=== PATIENT | female | born 1995 | race Caucasian/White ===

== ENCOUNTER 2016-12-23 00:41 | Emergency (ER) | payer OTHER ==
[~2016-12-23] VITALS: Ht 160 cm; Wt 100.3 kg
[2016-12-23 00:44] VITALS: Ht 160 cm; Wt 100.3 kg
[2016-12-23] MEDS ORDERED: ONDANSETRON 4 MG INJ IV STA (02:14)
[2016-12-23] MEDS ORDERED: LIDOCAINE/MYLANTA 40 ML BTL PO STA (02:14)
[2016-12-23 02:29] LABS: URINE BLOOD (Dip) POC 3+ (NEGATIVE)
[2016-12-23 02:47] LABS: BASOPHIL # 0.1 10^3/ul (0.0-0.1); BASOPHILS % 0.4 % (0.0-2.0); EOSINOPHILS % 0.3 % (0.0-7.0); HEMATOCRIT 40.6 % (37.0-47.0); HEMOGLOBIN 12.8 g/dl (12.0-16.0); LYMPHOCYTES # 1.9 10^3/ul (0.8-2.9); LYMPHOCYTES % 14.8 % (15.0-51.0); MEAN CORPUSCULAR HEMOGLOBIN 23.7 pg (29.0-33.0); MEAN CORPUSCULAR HGB CONC 31.5 g/dl (32.0-37.0); MEAN PLATELET VOLUME 10.9 fl (7.4-10.4); MONOCYTE # 0.8 10^3/ul (0.3-0.9); MONOCYTES % 5.9 % (0.0-11.0); NEUTROPHIL # 10.1 10^3/ul (1.6-7.5); NEUTROPHILS % 78.2 % (39.0-77.0); PLATELET COUNT 255 10^3/UL (140-415); RED BLOOD COUNT 5.41 10^6/ul (4.20-5.40); RED CELL DISTRIBUTION WIDTH 15.7 % (11.5-14.5); WHITE BLOOD COUNT 12.9 10^3/ul (4.8-10.8)
[2016-12-23 02:54] LABS: ALBUMIN 4.3 g/dl (3.3-4.9); BILIRUBIN,INDIRECT 0.2 mg/dl (0-1.1); BILIRUBIN,TOTAL 0.2 mg/dl (0.2-1.3); CALCIUM 9.8 mg/dl (8.4-10.2); CREATININE 0.68 mg/dl (0.44-1.00); POTASSIUM 3.6 mmol/L (3.5-5.1); TOTAL PROTEIN 7.9 g/dl (6.1-8.1)
[2016-12-23 02:55] LABS: ALBUMIN/GLOBULIN RATIO 1.19
[2016-12-23 03:17] LABS: ADD UMIC YES; UR ASCORBIC ACID NEGATIVE (NEGATIVE); UR BACTERIA FEW /HPF (NONE SEEN); UR BILIRUBIN (Dip) NEGATIVE (NEGATIVE); UR BLOOD (Dip) 3+ mg/dL (NEGATIVE); UR CLARITY CLOUDY (CLEAR); UR COLOR YELLOW (YELLOW); UR GLUCOSE (Dip) NEGATIVE (NEGATIVE); UR KETONES (Dip) NEGATIVE (NEGATIVE); UR LEUKOCYTE ESTERASE (Dip) 2+ Leu/ul (NEGATIVE); UR MUCUS MODERATE /HPF (NONE SEEN); UR NITRITE (Dip) NEGATIVE (NEGATIVE); UR RBC 49 /HPF (0-5); UR SPECIFIC GRAVITY (Dip) 1.016 (1.003-1.030); UR SQUAMOUS EPITHELIAL CELL MANY /HPF (FEW); UR TOTAL PROTEIN (Dip) 1+ mg/dl (NEGATIVE); UR UROBILINOGEN (Dip) NEGATIVE (NEGATIVE)
--- NOTE | 2016-12-23 03:55 | RADRPT ---
PROCEDURE: ULTRASOUND LIMITED ABDOMEN CLINICAL INDICATION: 21-year-old female with abdominal pain. TECHNIQUE: Multiple sonographic of the right upper quadrant of the abdomen were obtained. The imag es were reviewed on a PACS workstation. COMPARISON: None. FINDINGS: The pancreas is not well visualized secondary to the patient's body habitus and overlying bowel gas. The liver displays normal echogenicity. The liver measures 14.9 cm in length. No evidence of intrah epatic biliary ductal dilatation is seen. The portal and hepatic veins are unremarkable. The gallbladder demonstrates no wall thickening, sludge, nor stones. No pericholecystic fluid is see n. The common bile duct measures 3.0 mm and is not dilated. The right kidney displays normal echogenicity. The right kidney measures 9.4 cm in maximal length. N o caliectasis or hydronephrosis is seen. No free fluid is seen. IMPRESSION: Unremarkable right upper quadrant abdominal ultrasound. .Myron Tran MD, Date Time Electronically viewed and signed by .Myron Tran MD, on 12/23/2016 03:55 .M/
[2016-12-23] MEDS ORDERED: NAPR-688 PO (06:01)
[2016-12-23] MEDS ORDERED: CIPR500T4 PO ×2 (06:01→06:05)
[2016-12-23] MEDS ORDERED: ONDA4TAB11 PO (06:01)
[2016-12-23 06:03] VITALS: BP 115/65; PULSE 78; RESP 16; TEMP 98.4
[2016-12-23] MEDS ORDERED: NITR-58 PO (06:05)
[2016-12-23] MEDS ORDERED: HYDR-906 PO (06:07)
--- NOTE | 2016-12-23 06:14 | ERD ---
ER Documentation Chief Complaint Chief Complaint upper abdominal pain x 1 day HPI This 29-year-old female came in for upper abdominal pain rating to her back for 1 day. Says some lower abdominal pain. The pain is in her lower back as well as described as aching pain. She has had some chills but no fevers. She is also generalized malaise. ROS All systems reviewed and are negative except as per history of present illness. Medications Home Meds Active Scripts Hydrocodone/Acetaminophen ([place] 5-325 Tablet) 1 Each Tablet, 1 EACH PO Q6, #10 TAB Prov:CHRISTY COSTA DO 12/23/16 Nitrofurantoin Monohyd Macrocr* (Macrobid*) 100 Mg Capsr, 100 MG PO BID, #10 CAP Prov:CHRISTY COSTA DO 12/23/16 Ciprofloxacin Hcl* (Ciprofloxacin Hcl*) 500 Mg Tablet, 500 MG PO BID for 10 Days , TAB Prov:CHRISTY COSTA DO 12/23/16 Ondansetron (Zofran Odt) 4 Mg Tab.rapdis, 4 MG PO Q6, #20 Prov:CHRISTY COSTA DO 12/23/16 Naproxen* (Naproxen*) 500 Mg Tablet, 500 MG PO BID Y for PAIN, #20 TAB Prov:CHRISTY COSTA DO 12/23/16 Allergies Allergies: Coded Allergies: No Known Allergy (Unverified , 12/23/16) PMhx/Soc Medical and Surgical Hx: pt denies Medical Hx, pt denies Surgical Hx History of Surgery: No Anesthesia Reaction: No Hx Neurological Disorder: No Hx Respiratory Disorders: No Hx Cardiac Disorders: No Hx Psychiatric Problems: No Hx Miscellaneous Medical Probl: No Hx Alcohol Use: No Hx Substance Use: No Hx Tobacco Use: No Smoking Status: Never smoker Physical Exam Vitals Vital Signs Date Time Temp Pulse Resp B/P Pulse Ox O2 Delivery O2 Flow Rate FiO2 12/23/16 06:03 98.4 78 16 115/65 100 Room Air 12/23/16 01:26 80 16 110/53 99 Room Air 12/23/16 00:44 98.1 54 20 98/50 100 Physical Exam Const: [] Mild distress Head: Atraumatic Eyes: Normal Conjunctiva ENT: Normal External Ears, Nose and Mouth. Neck: Full range of motion..~ No meningismus. Resp: Clear to auscultation bilaterally Cardio: Regular rate and rhythm, no murmurs Abd: Soft, mild suprapubic pain without guarding rebound, non distended. Normal bowel sounds Skin: No petechiae or rashes Back: No midline or flank tenderness Ext: No cyanosis, or edema Neur: Awake and alert oriented 3, no focal deficits Psych: Normal Mood and Affect Result Diagram: 12/23/1622612/23/16226 Results 24 hrs Laboratory Tests Test 12/23/16 02:26 12/23/16 02:27 Urine Color YELLOW Urine Clarity CLOUDY Urine pH 7.0 Urine Specific [place] 1.016 Urine Ketones NEGATIVEmg/dL Urine Nitrite NEGATIVEmg/dL Urine Bilirubin NEGATIVEmg/dL Urine Urobilinogen NEGATIVEmg/dL Urine Leukocyte Esterase 2+Juan Miguel/ul Urine Microscopic RBC 49/HPF Urine Microscopic WBC 35/HPF Urine Squamous Epithelial Cells MANY/HPF Urine Bacteria FEW/HPF Urine Mucus MODERATE/HPF Urine Hemoglobin 3+mg/dL Urine Glucose NEGATIVEmg/dL Urine Total Protein 1+mg/dl White Blood Count 12.910^3/ul Red Blood Count 5.4110^6/ul Hemoglobin 12.8g/dl Hematocrit 40.6% Mean Corpuscular Volume 75.0fl Mean Corpuscular Hemoglobin 23.7pg Mean Corpuscular Hemoglobin Concent 31.5g/dl Red Cell Distribution Width 15.7% Platelet Count 42530^3/UL Mean Platelet Volume 10.9fl Neutrophils % 78.2% Lymphocytes % 14.8% Monocytes % 5.9% Eosinophils % 0.3% Basophils % 0.4% Nucleated Red Blood Cells % 0.0/100WBC Neutrophils # 10.110^3/ul Lymphocytes # 1.910^3/ul Monocytes # 0.810^3/ul Eosinophils # 0.010^3/ul Basophils # 0.110^3/ul Nucleated Red Blood Cells # 0.010^3/ul Bedside Urine pH (LAB) 7.0 Bedside Urine Protein (LAB) 1+ Bedside Urine Glucose (UA) Negative Bedside Urine Ketones (LAB) Negative Bedside Urine Blood 3+ Bedside Urine Nitrite (LAB) Negative Bedside Urine Leukocyte Esterase (L 1+ Sodium Level 143mmol/L Potassium Level 3.6mmol/L Chloride Level 104mmol/L Carbon Dioxide Level 29mmol/L Anion Gap 14 Blood Urea Nitrogen 7mg/dl Creatinine 0.68mg/dl Glucose Level 111mg/dl Calcium Level 9.8mg/dl Total Bilirubin 0.2mg/dl Direct Bilirubin 0.00mg/dl Indirect Bilirubin 0.2mg/dl Aspartate Amino Transf (AST/SGOT) 23IU/L Alanine Aminotransferase (ALT/SGPT) 35IU/L Alkaline Phosphatase 154IU/L Total Protein 7.9g/dl Albumin 4.3g/dl Globulin 3.60g/dl Albumin/Globulin Ratio 1.19 Lipase 38U/L Current Medications Medications (Trade) Dose Ordered Sig/Klaus Route PRN Reason Start Time Stop Time Status Last Admin Dose Admin Ondansetron HCl (Zofran Inj) 4 mg ONCE STAT IV 12/23/16 02:14 12/23/16 02:15 DC 12/23/16 02:39 Miscellaneous Medication (Gi Cocktail (2)) 40 ml ONCE STAT PO 12/23/16 02:14 12/23/16 02:15 DC 12/23/16 02:39 Procedures/MDM Pyelonephritis without evidence of sepsis. Patient also has evidence of GERD. She is given a liter of normal saline and abdominal workup was performed which revealed significant UTI. Pain resolved she felt much better with fluids alone. Going to discharge her with Cipro as well as Macrobid and Zofran, naproxen and some Zantac. Primary care follow-up in 2 3 days and return precautions Right upper quadrant ultrasound interpretation: No evidence of cholecystitis or gallstones, normal right upper quadrant ultrasound Departure Diagnosis: Primary Impression: Pyelonephritis Condition: Stable Patient Instructions: Pyelonephritis Additional Instructions: Call your primary care doctor TOMORROW for an appointment during the next 2-3 days.See the doctor sooner or return here if your condition worsens before your appointment time. CHRISTY COSTA DO Dec 23, 2016 06:14
[2016-12-23] MEDS ORDERED: RANI150T9 PO (06:15)
== END 2016-12-23 06:26 | disposition home or self-care (01) ==
LOC: E/R 00:41
DX: N12 Tubulo-interstitial nephritis, not specified as acute or chronic (principal)
CPT/HCPCS: 36415; 76705; 80053; 81001; 83690; 85025; 96374; J2405; Z7502; Z7610; 81003

== ENCOUNTER 2017-01-14 01:26 | Emergency (ER) | payer OTHER ==
[~2017-01-14] VITALS: Ht 167.6 cm; Wt 98.2 kg
[~2017-01-14 01:26] MED LIST: CIPR500T4 PO; HYDR-906 PO; NAPR-688 PO; NITR-58 PO; ONDA4TAB11 PO; RANI150T9 PO
[2017-01-14 01:30] VITALS: Ht 167.6 cm; Wt 98.2 kg
[2017-01-14] MEDS ORDERED: ONDANSETRON 4 MG INJ IV STA (02:18)
[2017-01-14] MEDS ORDERED: HYDROmorphONE 1 MG/ML SYG IV STA (02:18)
[2017-01-14] MEDS ORDERED: SOD CHLORIDE 0.9% 1,000 ML IV STA (02:18)
--- NOTE | 2017-01-14 03:12 | ERD ---
ER Documentation Chief Complaint Chief Complaint upper abd pain radaiting to back x 1 day HPI This is a 21-year-old female complains of pain in the left abdomen for 1 day. The patient states she was seen here a month ago for the same problem at that time her pain was across the entire upper abdomen and she had an ultrasound that showed no gallstones. The patient says she was given medication and went home and her pain went away. She says the pain is now returned but now is more located in the left upper and midabdomen. She says she has nausea but no vomiting or diarrhea. She says she has had a lack of appetite the past 2 days does not know if the pain is worse after eating. Not having any chest pain shortness of breath or heartburn. The pain is nonradiating and described as intermittent crampy pain ROS All systems reviewed and are negative except as per history of present illness. Medications Home Meds Active Scripts Omeprazole* (Omeprazole*) 40 Mg Capsule.dr, 40 MG PO DAILY, #14 CAP Prov:JASBIR VELÁSQUEZ DO 01/14/17 Hydrocodone/Acetaminophen ([place] 5-325 Tablet) 1 Each Tablet, 1 TAB PO Q6H Y for PAIN, #7 TAB Prov:JASBIR VELÁSQUEZ DO 01/14/17 Ondansetron (Ondansetron Odt) 4 Mg Tab.rapdis, 4 MG PO Q6H Y for NAUSEA AND/OR VOMITING, #10 TAB Prov:JASBIR VELÁSQUEZ DO 01/14/17 Ranitidine Hcl* (Zantac*) 150 Mg Tablet, 150 MG PO BID, #60 TAB Prov:CHRISTY COSTA DO 12/23/16 Hydrocodone/Acetaminophen ([place] 5-325 Tablet) 1 Each Tablet, 1 EACH PO Q6, #10 TAB Prov:CHRISTY COSTA DO 12/23/16 Nitrofurantoin Monohyd Macrocr* (Macrobid*) 100 Mg Capsr, 100 MG PO BID, #10 CAP Prov:CHRISTY COSTA 12/23/16 Ciprofloxacin Hcl* (Ciprofloxacin Hcl*) 500 Mg Tablet, 500 MG PO BID for 10 Days , TAB Prov:CHRISTY COSTA 12/23/16 Ondansetron (Zofran Odt) 4 Mg Tab.rapdis, 4 MG PO Q6, #20 Prov:CHRISTY COSTA DO 12/23/16 Naproxen* (Naproxen*) 500 Mg Tablet, 500 MG PO BID Y for PAIN, #20 TAB Prov:CHRISTY COSTA DO 12/23/16 Allergies Allergies: Coded Allergies: No Known Allergy (Unverified , 12/23/16) PMhx/Soc History of Surgery: No Anesthesia Reaction: No Hx Neurological Disorder: No Hx Respiratory Disorders: No Hx Cardiac Disorders: No Hx Psychiatric Problems: No Hx Miscellaneous Medical Probl: No Hx Alcohol Use: No Hx Substance Use: No Hx Tobacco Use: No Smoking Status: Never smoker FmHx Family History: No coronary disease Physical Exam Vitals Vital Signs Date Time Temp Pulse Resp B/P Pulse Ox O2 Delivery O2 Flow Rate FiO2 01/14/17 05:00 98.0 52 11 104/49 97 Room Air 01/14/17 04:00 98.0 47 12 103/54 100 Room Air 01/14/17 03:00 97.8 50 17 107/63 100 Room Air 01/14/17 02:06 97.8 40 12 100/47 100 Room Air 01/14/17 01:30 97.8 58 20 101/47 98 Physical Exam Const: Well-developed, well-nourished Head: Atraumatic, normocephalic Eyes: Normal Conjunctiva, PERRLA, EOMI, normal sclera, no nystagmus ENT: Normal External Ears, Nose and Mouth, moist mucus membranes. Neck: Full range of motion. No meningismus, no lymphadenopathy. Resp: Clear to auscultation bilaterally, no wheezing, rhonchi, rales Cardio: Regular rate and rhythm, no murmurs, S1 S2 present Abd: Soft, moderate tenderness to the epigastrium, left upper quadrant , left mid abdomen, non distended. Normal bowel sounds, no guarding or rebound, no pulsitile abdominal masses or bruits Skin: No petechiae or rashes, no ecchymosis , no maculopapular rash Back: No midline or flank tenderness Ext: No cyanosis, or edema, FROM x 4, normal inspection, neurovascularly intact x 4 Neur: Awake and alert, STR 5/5 x 4, sensation intact x 4, no focal findings, cerebellum intact Psych: Normal Mood and Affect Result Diagram: 01/14/17 0300 01/14/17 0300 Results 24 hrs Laboratory Tests Test 01/14/17 03:00 White Blood Count 10.310^3/ul Red Blood Count 4.8710^6/ul Hemoglobin 11.6g/dl Hematocrit 36.2% Mean Corpuscular Volume 74.3fl Mean Corpuscular Hemoglobin 23.8pg Mean Corpuscular Hemoglobin Concent 32.0g/dl Red Cell Distribution Width 15.7% Platelet Count 85571^3/UL Mean Platelet Volume 11.1fl Neutrophils % 82.8% Lymphocytes % 11.0% Monocytes % 5.3% Eosinophils % 0.2% Basophils % 0.4% Nucleated Red Blood Cells % 0.0/100WBC Neutrophils # 8.510^3/ul Lymphocytes # 1.110^3/ul Monocytes # 0.610^3/ul Eosinophils # 0.010^3/ul Basophils # 0.010^3/ul Nucleated Red Blood Cells # 0.010^3/ul Sodium Level 144mmol/L Potassium Level 3.9mmol/L Chloride Level 102mmol/L Carbon Dioxide Level 32mmol/L Anion Gap 14 Blood Urea Nitrogen 7mg/dl Creatinine 0.76mg/dl Glucose Level 122mg/dl Calcium Level 9.4mg/dl Total Bilirubin 0.2mg/dl Direct Bilirubin 0.00mg/dl Indirect Bilirubin 0.2mg/dl Aspartate Amino Transf (AST/SGOT) 156IU/L Alanine Aminotransferase (ALT/SGPT) 60IU/L Alkaline Phosphatase 143IU/L Total Protein 6.9g/dl Albumin 3.8g/dl Globulin 3.10g/dl Albumin/Globulin Ratio 1.22 Lipase 29U/L Current Medications Medications (Trade) Dose Ordered Sig/Klaus Route PRN Reason Start Time Stop Time Status Last Admin Dose Admin Sodium Chloride (NS) 1,000 ml @ 1,000 mls/hr Q1H STAT IV 01/14/17 02:18 01/14/17 03:17 DC 01/14/17 03:09 Hydromorphone HCl (Dilaudid) 1 mg ONCE STAT IV 01/14/17 02:18 01/14/17 02:19 DC 01/14/17 03:10 Ondansetron HCl (Zofran Inj) 4 mg ONCE STAT IV 01/14/17 02:18 01/14/17 02:19 DC 01/14/17 03:10 IV Flush 10 ml 10 ml STK-MED ONCE .ROUTE 01/14/17 04:16 01/14/17 04:17 DC 01/14/17 04:27 Sodium Chloride (NS) 100 ml @ ud STK-MED ONCE .ROUTE 01/14/17 04:16 01/14/17 04:17 DC 01/14/17 04:27 Iohexol (Omnipaque 300mg/ ml) 150 ml STK-MED ONCE .ROUTE 01/14/17 04:16 01/14/17 04:17 DC 01/14/17 04:27 Procedures/MDM PROCEDURE: CT Abdomen and pelvis with contrast. CLINICAL INDICATION: Abdominal pain. TECHNIQUE: CT scan of the abdomen and pelvis with contrast was performed on a multi-detector high-resolution CT scanner. The patient was scanned following the uncomplicated administration of 100 cc of Omnipaque 300 intravenous contrast. Coronal and sagittal reformatted images were obtained from the axial source images. Images were reviewed on a high-resolution PACS workstation. DICOM images are available. One or more of the following dose reduction techniques were used: - Automated exposure control. - Adjustment of the mA and/or kV according to patient size. - Use of iterative reconstruction technique. Exam CTD/vol = 22.86 mGy. Total exam DLP = 1417.07 mGy-cm. COMPARISON: None. FINDINGS: Evaluation of the lung bases demonstrates minimal bibasilar atelectasis. Abdomen: The liver is normal in size. There is no focal mass or dilatation of the biliary tree. The gallbladder is not distended. The spleen, pancreas and bilateral adrenal glands are within normal limits. Bilateral kidneys are normal in size with symmetric enhancement. There is no focal mass, hydronephrosis or hydroureter. There is no retroperitoneal adenopathy. The abdominal aorta is of normal caliber. There is no abnormal bowel wall thickening or distension. There is no bowel obstruction or free air. A normal appendix is identified. There is no diverticulosis or diverticulitis. There is no ascites. Pelvis: The bladder is unremarkable. The uterus and adnexa are within normal limits. An intrauterine device is present. There is no significant pelvic adenopathy or free fluid. Evaluation of the osseous structures demonstrates no suspicious lytic or blastic lesion. IMPRESSION: No acute abnormality identified within the abdomen and pelvis. Intrauterine device. .Dheeraj Arndt MD, MD Date Time Electronically viewed and signed by .Dheeraj Arndt MD, MD on 01/14/2017 04:37 .T/ CC: Sharath VELÁSQUEZ Patient's CAT scan does not show any acute pathology. Blood work looks unremarkable. The patient's abdominal pain is likely due to some type of gastric issue. Pain is mostly located in the epigastric and left upper quadrant. We will advise her on dietary changes treat with pain medication as well as proton pump inhibitor for a brief period time. The patient does have bradycardia with heart rate in the 40s. EKG shows sinus bradycardia. The patient is not symptomatic from the bradycardia she has no shortness of breath or dyspnea on exertion. This may be her baseline. Will have her follow-up with sales and marketing representative or her primary care physician on the heart rate being slow. EKG: Rate/Rhythm: Sinus bradycardia heart rate 47 QRS, ST, QT: NORMAL CA, QRS, QT] Impression: NORMAL EKG Heart rate at 5:30 AM is 59-62 Departure Diagnosis: Primary Impression: Abdominal pain Abdominal location: left upper quadrant Qualified Code: R10.12 - Left upper quadrant pain Condition: Stable JASBIR VELÁSQUEZ DO Jan 14, 2017 03:12
[2017-01-14 03:18] LABS: BASOPHILS % 0.4 % (0.0-2.0); EOSINOPHILS % 0.2 % (0.0-7.0); HEMATOCRIT 36.2 % (37.0-47.0); HEMOGLOBIN 11.6 g/dl (12.0-16.0); LYMPHOCYTES # 1.1 10^3/ul (0.8-2.9); MEAN CORPUSCULAR HEMOGLOBIN 23.8 pg (29.0-33.0); MEAN CORPUSCULAR VOLUME 74.3 fl (82.0-101.0); MEAN PLATELET VOLUME 11.1 fl (7.4-10.4); MONOCYTE # 0.6 10^3/ul (0.3-0.9); MONOCYTES % 5.3 % (0.0-11.0); NEUTROPHIL # 8.5 10^3/ul (1.6-7.5); NEUTROPHILS % 82.8 % (39.0-77.0); PLATELET COUNT 241 10^3/UL (140-415); RED BLOOD COUNT 4.87 10^6/ul (4.20-5.40); RED CELL DISTRIBUTION WIDTH 15.7 % (11.5-14.5); WHITE BLOOD COUNT 10.3 10^3/ul (4.8-10.8)
[2017-01-14 03:42] LABS: ALBUMIN 3.8 g/dl (3.3-4.9); ALBUMIN/GLOBULIN RATIO 1.22; BILIRUBIN,INDIRECT 0.2 mg/dl (0-1.1); BILIRUBIN,TOTAL 0.2 mg/dl (0.2-1.3); CALCIUM 9.4 mg/dl (8.4-10.2); CREATININE 0.76 mg/dl (0.44-1.00); POTASSIUM 3.9 mmol/L (3.5-5.1); TOTAL PROTEIN 6.9 g/dl (6.1-8.1)
[2017-01-14] MEDS ORDERED: IOHEXOL 300MG/ML 150 ML BTL ONE (04:16)
[2017-01-14] MEDS ORDERED: SOD CHLORIDE 0.9% 100 ML ONE (04:16)
--- NOTE | 2017-01-14 04:38 | RADRPT ---
PROCEDURE: CT Abdomen and pelvis with contrast. CLINICAL INDICATION: Abdominal pain. TECHNIQUE: CT scan of the abdomen and pelvis with contrast was performed on a multi-detector high -resolution CT scanner. The patient was scanned following the uncomplicated administration of 100 c c of Omnipaque 300 intravenous contrast. Coronal and sagittal reformatted images were obtained from the axial source images. Images were reviewed on a high-resolution PACS workstation. DICOM images a re available. One or more of the following dose reduction techniques were used: - Automated exposure control. - Adjustment of the mA and/or kV according to patient size. - Use of iterative reconstruction technique. Exam CTD/vol = 22.86 mGy. Total exam DLP = 1417.07 mGy-cm. COMPARISON: None. FINDINGS: Evaluation of the lung bases demonstrates minimal bibasilar atelectasis. Abdomen: The liver is normal in size. There is no focal mass or dilatation of the biliary tree. T he gallbladder is not distended. The spleen, pancreas and bilateral adrenal glands are within lisandra l limits. Bilateral kidneys are normal in size with symmetric enhancement. There is no focal mass, hydronephrosis or hydroureter. There is no retroperitoneal adenopathy. The abdominal aorta is of normal caliber. There is no abnormal bowel wall thickening or distension. There is no bowel obstruction or free air . A normal appendix is identified. There is no diverticulosis or diverticulitis. There is no asci bianka. Pelvis: The bladder is unremarkable. The uterus and adnexa are within normal limits. An intrauter ine device is present. There is no significant pelvic adenopathy or free fluid. Evaluation of the osseous structures demonstrates no suspicious lytic or blastic lesion. IMPRESSION: No acute abnormality identified within the abdomen and pelvis. Intrauterine device. .Dheeraj Arndt MD, MD Date Time Electronically viewed and signed by .Dheeraj Arndt MD, MD on 01/14/2017 04:37 .T/
[2017-01-14 05:00] VITALS: BP 104/49; PULSE 52; RESP 11; TEMP 98
[2017-01-14] MEDS ORDERED: OMEP40CA6 PO (05:35)
[2017-01-14] MEDS ORDERED: ONDA4TAB14 PO (05:35)
[2017-01-14] MEDS ORDERED: HYDR-906 PO (05:35)
== END 2017-01-14 06:23 | disposition home or self-care (01) ==
LOC: E/R 01:26
DX: R10.12 Left upper quadrant pain (principal)
CPT/HCPCS: 74177; 80053; 83690; 85025; 93005; 96374; 96375; J1170; J2405; J7030; Q9967; Z7502; Z7610

== ENCOUNTER 2017-05-10 02:50 | Emergency (ER) | END 2017-05-10 06:00 | disposition home or self-care (01) ==

== ENCOUNTER 2017-06-07 17:55 | Emergency (ER) | END 2017-06-07 23:05 | disposition home or self-care (01) ==

== ENCOUNTER 2017-06-08 11:09 | Inpatient (IN) | END 2017-06-12 12:59 | disposition home or self-care (01) | DRG 419 ==

== ENCOUNTER 2018-04-27 15:45 | Emergency (ER) | payer OTHER ==
[~2018-04-27] VITALS: Ht 162.6 cm; Wt 75.0 kg
[~2018-04-27 15:45] MED LIST changes: -CIPR500T4 PO; +DOCU-144 PO; +HYDR-3601 PO; -HYDR-906 PO; -NAPR-688 PO; -NITR-58 PO; -ONDA4TAB11 PO; +ONDA4TAB14 PO; -RANI150T9 PO; +SIME80TA60 PO
[2018-04-27 16:03] VITALS: Ht 162.6 cm; Wt 75.0 kg
[2018-04-27] MEDS ORDERED: IBUPROFEN 600 MG TAB PO ONE (20:30)
--- NOTE | 2018-04-27 20:32 | ERD ---
ER Documentation Chief Complaint Chief Complaint L 2nd digit toe deformity - s/p fall this afternoon; swelling of L foot HPI Patient is a 22-year-old female who presents the ER for concerns of left second toe pain. Patient states she slipped on wet water and hit the wall with her left foot. Patient states that her left toe appears deformed. Patient states she has swelling and bruising to the left second toe. Patient is unable to bear weight to the affected extremity. Patient denies previous fractures or dislocations in the affected extremity. ROS All systems reviewed and are negative except as per history of present illness. Medications Home Meds Active Scripts Docusate Sodium* (Colace*) 100 Mg Capsule, 100 MG PO DAILY, #30 CAP Prov:MCKEON,GINA V[employer] 06/12/17 Hydrocodone Bit-Acetaminophen (Hydrocodone Bit-APAP) 5-325MG Tablet, 1 TAB PO Q4H PRN for pain, #30 TAB Prov:MCKEON,GINA [employer] 06/12/17 Simethicone* (Mylicon*) 80 Mg Tab, 80 MG PO Q6H PRN for DISTENSION/GAS/BLOATING, #90 TAB Prov:MCKEON,GINA V[employer] 06/12/17 Ondansetron (Ondansetron Odt) 4 Mg Tab.rapdis, 4 MG PO Q6H PRN for NAUSEA AND/OR VOMITING, #10 TAB Prov:HARPAL JONES 05/10/17 Allergies Allergies: Coded Allergies: No Known Allergy (Unverified , 12/23/16) PMhx/Soc Medical and Surgical Hx: pt denies Medical Hx History of Surgery: Yes ([id number]) Anesthesia Reaction: No Hx Neurological Disorder: No Hx Respiratory Disorders: No Hx Cardiac Disorders: No Hx Psychiatric Problems: No Hx Miscellaneous Medical Probl: No Hx Alcohol Use: No Hx Substance Use: No Hx Tobacco Use: No FmHx Family History: No diabetes Physical Exam Vitals Vital Signs Date Temp Pulse Resp B/P (MAP) Pulse Ox O2 O2 Flow FiO2 Time Delivery Rate 04/27/18 97.4 62 20 112/68 100 16:03 (83) Physical Exam GENERAL: Well-developed, well-nourished male. Appears in no acute distress. HEAD: Normocephalic, atraumatic. EYES: Pupils are equally reactive bilaterally. EOMs grossly intact. No conjunctival erythema. NECK: Supple. No meningismus. Normal range of motion of the neck. LUNG: Clear to auscultation bilaterally. No rhonchi, wheezing, rales or coarse breath sounds. HEART: Regular rate and rhythm. No murmurs, rubs or gallops. EXTREMITIES: Equal pulses bilaterally. No peripheral clubbing, cyanosis or edema. No unilateral leg swelling. NEUROLOGIC: Alert and oriented. Moving all four extremities without any difficulty. Normal speech. Steady gait. SKIN: Normal color. Warm and dry. No rashes or lesions. LLE: Slight deformity noted to second digit with swelling and ecchymosis. Skin intact. Decreased range of motion of second toe secondary to pain. Tender to palpation over the second digit. Nontender to palpation of the midfoot, fifth metatarsal, medial or lateral ankle. Normal range of motion of the ankle. Sensation intact to light touch. Neurovascularly intact. (Able to plantarflex, dorsiflex, yousuf foot, invert foot, raise big toe.) 2+ DP and DT pulses. Results 24 hrs Current Medications Medications Dose Sig/Klaus Start Time Status Last (Trade) Ordered Route PRN Stop Time Admin Dose Reason Admin Ibuprofen 600 mg ONCE ONCE 04/27/18 DC 04/27/18 (Motrin) PO 20:30 20:24 04/27/18 20:31 Procedures/MDM ED COURSE: The patient was stable throughout ED course. I kept the patient and/or family informed of laboratory and diagnostic imaging results throughout the ED course. DIAGNOSTIC IMAGING: Read by radiologist. DIAGNOSTIC IMAGING REPORT Patient: AYLEEN DUCKWORTH : 1995 Age: 22 Sex: F MR #: [id number] DOS: 04/27/182018 Ordering MD: VENU OSORIO PA-C Location: [facility] Room/Bed: PROCEDURE: XR Foot. CLINICAL INDICATION: Pain TECHNIQUE: AP, lateral and oblique views of the left foot was obtained. The images were reviewed on a PACS workstation. COMPARISON: None. FINDINGS: There is a mildly displaced fracture involving the base of the middle phalanx of the second digit. The joint spaces are preserved. The bone mineralization is normal. No significant soft tissue swelling is seen. RPTAT: AA IMPRESSION: Mildly displaced fracture involving the base of the middle phalanx of the second digit. .Volodymyr Lyon MD, Date Time Electronically viewed and signed by .Volodymyr Lyon MD, on 04/27/2018 21:44 .S/ CC: VENU OSORIO PA-C [id number] PROCEDURES: SPLINT APPLICATION: The patient was verbally consented at bedside prior to splint application. Patient was explained the risks, benefits and alternatives to this procedure. The patient was neurovascularly intact prior to and status post application of the splint. The patient tolerated the procedure well with no complications. Splint type: L ortho shoe and buddt tape (digits 2-3) Extremity: L 2nd Toe fracture Indication: Mildly displaced fracture involving the base of the middle phalanx of the second digit. MEDICATIONS GIVEN: Ibuprofen Patient tolerated medication well with no adverse reactions. Patient reported improvement in pain. MEDICAL DECISION MAKING: This is a 22-year-old female presents the ER for concerns of left toe pain after slip and fall injury earlier today.. Vital signs were reviewed. Patient was afebrile. Xrays showed Mildly displaced fracture involving the base of the middle phalanx of the second digit. Patient was placed in the left foot ortho shoe and affected digit was lisa taped. Patient was advised to follow-up with ict security specialist for further management of her fracture. Low suspicion for ankle dislocation, toe dislocation, ankle fracture, tarsal bone fracture, metatarsal fracture, gout, septic joint, reactive arthritis, psoriatic arthritis, DVT, compartment syndrome At this time, unable to rule out any tendon and ligament injuries PRESCRIPTIONS: Ibuprofen DISCHARGE: At this time, patient is stable for discharge and outpatient management. I have instructed the patient to follow-up with his/her primary care physician in 1-2 days. I have discussed with the patient the possibility of needing to see an or thopedic specialist for further workup and imaging if the pain persists. I have instructed the patient to promptly return to the ER for any new or worsening symptoms including increased pain, swelling, redness, warmth or fever. The patient and/or family expressed understanding of and agreement with this plan. All questions were answered. Home care instructions were provided. Disclaimer: Inadvertent spelling and grammatical errors are likely due to EHR/dictation software use and do not reflect on the overall quality of patient care. Also, please note that the electronic time recorded on this note does not necessarily reflect the actual time of the patient encounter. Departure Diagnosis: Primary Impression: Toe fracture, left Encounter type: initial encounter Toe: lesser toe Fracture type: closed Phalanx: unspecified phalanx Fracture alignment: displaced Qualified Codes: S92.502A - Displaced unspecified fracture of left lesser toe(s), initial encounter for closed fracture Condition: Fair Patient Instructions: Fracture, Toe [Closed] Referrals: [facility] (PCP) Additional Instructions: Follow-up with ict security specialist Call your primary care doctor TOMORROW for an appointment during the next 1-2 days.See the doctor sooner or return here if your condition worsens before your appointment time. VENU OSORIO PA-C Apr 27, 2018 20:32
[2018-04-27] MEDS ORDERED: IBUP-1542 PO (21:53)
[2018-04-27 22:05] VITALS: BP 115/61; PULSE 60; RESP 18
== END 2018-04-27 22:05 | disposition home or self-care (01) ==
LOC: FTE 15:45
DX: S92.522A Displaced fracture of middle phalanx of left lesser toe(s), initial encounter for closed fracture (principal); W01.198A Fall on same level from slipping, tripping and stumbling with subsequent striking against other object, initial encounter; Y92.9 Unspecified place or not applicable
CPT/HCPCS: 73630; Z7502; Z7610